=== PATIENT | female | born 1995 | race Caucasian/White ===

== ENCOUNTER 2017-05-16 13:53 | Emergency (ER) | payer OTHER ==
[~2017-05-16] VITALS: Ht 160 cm; Wt 59.1 kg
[2017-05-16 14:02] VITALS: TEMP 98.1
[2017-05-16] MEDS ORDERED: NEXPLANON68 MG ID (14:05)
[2017-05-16] MEDS ORDERED: NAPROSYN500 MG PO (14:05)
[2017-05-16 16:36] VITALS: BP 123/87; PULSE 82
[2017-05-16] MEDS ORDERED: ISENTRESS400 MG PO (16:49)
[2017-05-16] MEDS ORDERED: TRUVADA PO (16:49)
== END 2017-05-16 17:29 | disposition home or self-care (01) ==
LOC: COL.ER 13:53
DX: T74.21XA Adult sexual abuse, confirmed, initial encounter (principal); S30.0XXA Contusion of lower back and pelvis, initial encounter; Z90.89 Acquired absence of other organs; Z87.42 Personal history of other diseases of the female genital tract; Y07.9 Unspecified perpetrator of maltreatment and neglect; Y04.2XXA Assault by strike against or bumped into by another person, initial encounter

== ENCOUNTER → 2017-05-16 | Outpatient (REF) ==
[~2017-05-16] VITALS: Ht 160 cm; Wt 59.1 kg
[~2017-05-16] MED LIST: ISENTRESS400 MG PO; NAPROSYN500 MG PO; NEXPLANON68 MG ID; TRUVADA PO
== END ==
LOC: COL.ER 14:15
DX: Z04.41 Encounter for examination and observation following alleged adult rape (principal)